=== PATIENT | male | born 1950 | race Caucasian/White ===

== ENCOUNTER 2017-02-13 05:10 | Day surgery (SDC) | payer OTHER ==
[~2017-02-13] VITALS: Ht 177.8 cm; Wt 113.4 kg
--- NOTE | ~2017-02-13 | O ---
[address] [address] OPERATIVE REPORT Name: CHARI LUIS Room #: 150-2 [facility] M.R.#: [id number] Admission: 02/13/17 Attend Phys: Jeison Renteria MD Discharge: Date of : 54 Report #: [id number] THIS REPORT FOR: //name// CC: Filemon Bauer DATE OF SERVICE: 02/13/2017 PREOPERATIVE DIAGNOSIS: Right knee medial meniscus tear. POSTOPERATIVE DIAGNOSIS: Right knee medial meniscus tear and large synovial plica. PROCEDURE: Right knee arthroscopy, partial medial meniscectomy and resection of synovial plica. SURGOEN: Jeison Renteria MD ELL TEACHER: NAHID Calix ANESTHETIC: General. INDICATIONS: See hospital H and P. DESCRIPTION OF PROCEDURE: After adequate general anesthesia had been obtained, the patient's right lower extremity was prepped and draped in the usual meticulous sterile fashion. Limb was exsanguinated with gravity, tourniquet inflated to 300 torr. Superomedial portal was established by first infiltrating with 0.5% Naropin, then making a stab incision with 11 blade. Inflow cannula placed. Knee was insufflated with fluid. Anterolateral and anteromedial portals were established utilizing the same technique. Complete diagnostic arthroscopy was performed. Medial compartment demonstrated a flap tear. Medial meniscus was debrided with baskets and cheryl to a stable rim. Did have a small horizontal cleavage component but it was not unstable, so I elected not to intervene for this. Cruciate ligaments were intact. Lateral compartment normal. Patellofemoral compartment demonstrated fissuring along the lateral patellar facet, but no unstable chondral fragments. He did have a large synovial plica immediately which was resected with a shaver. At this time, the knee was irrigated copiously, 0.5% Naropin infiltrated into [facility] [address] [place] [address] OPERATIVE REPORT Name: CHARI LUIS Room #: 150-2 [facility]#: [id number] Admission: 02/13/17 Attend Phys: Jeison Renteria MD Discharge: Date of : 54 Report #: [id number] the knee. The portals were closed with 4-0 nylon. Sterile compressive dressing applied. Tourniquet deflated. By: [id number] Jeison Renteria MD /nt
--- NOTE | ~2017-02-13 | EKG ---
[address] [address] ELECTROCARDIOGRAM REPORT Name: CHARI LUIS Room #: 150-2 [facility].R.#: [id number] Admission: 02/13/17 Attend Phys: Jeison Renteria MD Discharge: Date of : 54 Report #: [id number] THIS REPORT FOR: //name// [facility] Test Date: 2017-02-13 Test Time: 09:24:03 Pat Name: CHARI LUIS Department: Room: 150 2 Gender: M Marketing Team Lead: CAYDEN : 1950 Requested By: Jeison Renteria Order Number: [id number] MD: Braxton Roland Measurements Intervals [place] Rate: 65 P: 10 UT: 138 QRS: 32 QRSD: 101 T: 28 QT: 435 QTc: 453 Interpretive Statements Sinus rhythm Borderline low voltage, extremity leads No previous ECG available for comparison Electronically Signed On 02-13-2017 12:40:29 CDT by Braxton Roland [email or web address] <ELECTRONICALLY SIGNED> By: Braxton Roland MD 02/13/17 1240 09 3 Braxton Roland MD /LISA
[~2017-02-13 05:10] MED LIST: BENICAR40 MG PO; LIPITOR10 MG PO; LOPRESSOR25 PO
[2017-02-13 09:15] VITALS: BP 138/92
[2017-02-13 12:14] VITALS: BP 138/92
== END 2017-02-13 11:30 | disposition home or self-care (01) ==
LOC: OR 05:10 → TBA 05:10 → OR 11:27
DX: S83.241A Other tear of medial meniscus, current injury, right knee, initial encounter (principal); M67.51 Plica syndrome, right knee; I10 Essential (primary) hypertension; E78.00 Pure hypercholesterolemia, unspecified; Z87.891 Personal history of nicotine dependence; Z88.0 Allergy status to penicillin; Z88.1 Allergy status to other antibiotic agents; Z88.2 Allergy status to sulfonamides; Z98.890 Other specified postprocedural states; Z79.899 Other long term (current) drug therapy; X58.XXXA Exposure to other specified factors, initial encounter; Y93.89 Activity, other specified; Y92.89 Other specified places as the place of occurrence of the external cause; Y99.8 Other external cause status
CPT/HCPCS: 50010; 50101; 50405; 50612; 51038; 54170; 56526; 62110; 62900; 70005

== ENCOUNTER → 2019-11-25 | Outpatient (CLI) | payer OTHER | LOC: SJCVC 15:06 | PROVIDERS: ATTEND Internal Medicine Cardiovascular Disease | DX: R94.31 Abnormal electrocardiogram [ECG] [EKG] (principal); I10 Essential (primary) hypertension; E78.00 Pure hypercholesterolemia, unspecified; Z79.899 Other long term (current) drug therapy; Z87.891 Personal history of nicotine dependence; Z82.49 Family history of ischemic heart disease and other diseases of the circulatory system ==

== ENCOUNTER → 2019-12-22 | Outpatient (CLI) | payer OTHER | LOC: SJCVCIMAG 12:13 | PROVIDERS: ATTEND Internal Medicine Cardiovascular Disease | DX: R06.00 Dyspnea, unspecified (principal); I25.10 Atherosclerotic heart disease of native coronary artery without angina pectoris; I10 Essential (primary) hypertension ==